=== PATIENT | male | born 1985 | race Caucasian/White ===

== ENCOUNTER 2018-10-13 07:54 | Emergency (ER) | payer OTHER ==
[2018-10-13 08:05] VITALS: BP 118/68; PULSE 69; TEMP 98.6; BMI 30.7
--- NOTE | 2018-10-13 08:29 | PDOC ---
History of Present Illness - General Chief Complaint: Abscess Boil Stated Complaint: LUMP ON WRIST Time Seen by Provider: 10/13/18 08:09 History Source: Patient Exam Limitations: No Limitations Past History - Travel Traveled outside of the country in the last 30 days: No Close contact w/someone who was outside of country & ill: No - Past Medical History Allergies/Adverse Reactions: Allergies Allergy/AdvReac Type Severity Reaction Status Date / Time No Known Allergies Allergy Verified 10/13/18 08:03 Home Medications: Ambulatory Orders Ibuprofen 600 mg PO Q6H #30 tablet 10/13/18 COPD: No - Immunization History Immunization Up to Date: No - Suicide/Smoking/Psychosocial Hx Smoking History: Never smoked Have you smoked in the past 12 months: No Information on smoking cessation initiated: No Hx Alcohol Use: No Drug/Substance Use Hx: No Review of Systems - Review of Systems Able to Perform ROS?: Yes Comments:: 10/13/18 08:24 CONSTITUTIONAL: Absent: fever, chills, diaphoresis, generalized weakness, malaise, loss of appetite MUSCULOSKELETAL: Absent: myalgia, arthralgia, joint swelling SKIN: Present: lump on L wrist Absent: rash, itching, pallor NEUROLOGIC: Absent: headache, focal weakness or paresthesias, dizziness, unsteady gait, seizure, mental status changes, bladder or bowel incontinence PSYCHIATRIC: Absent: anxiety, depression, suicidal or homicidal ideation, hallucinations. Is the patient limited Norwegian proficient: No *Physical Exam - Vital Signs Last Vital Signs Temp Pulse Resp BP Pulse Ox 98.6 F 69 18 118/68 96 10/13/18 08:01 10/13/18 08:01 10/13/18 08:01 10/13/18 08:01 10/13/18 08:01 - Physical Exam Comments: 10/13/18 08:25 GENERAL: The patient is awake, alert, and fully oriented, in no acute distress. HEAD: Normal with no signs of trauma. EYES: Pupils equal, round and reactive to light, extraocular movements intact, sclera anicteric, conjunctiva clear. EXTREMITIES: Normal range of motion, no edema. NEUROLOGICAL: Normal speech, normal gait. PSYCH: Normal mood, normal affect. SKIN: 1cm round x 1cm high mobile cyst like structure to the L lateral ventral wrist. No erythema or pus noted to the area. Warm, Dry, normal turgor, no rashes noted. Medical Decision Making - Medical Decision Making 10/13/18 08:26 The patient is a 32-year-old male with no past medical history who presents to the ER with a bump on his left wrist. The patient is right-hand dominant. The patient states that the bump has been there for approximately 5 months. He states that it fluctuates in size. However the last 3 days. He states his gotten larger and size. He states that it is painful. Denies fevers, chills, redness to the site, drainage from the site, weakness/numbness and tingling to the affected extremity. A/P: Ganglion cyst On exam there is a 1 cm round by 1 cm high ganglion cyst to the left ventral lateral wrist. It is mobile, nonerythematous without signs of secondary infection. PMS of the L hand intact Will give NSAIDs for pain. We will refer patient to orthopedics for further management as there is nothing to do at this time. Discharge home I discussed the physical exam findings, ancillary test results and final diagnoses with the patient. I answered all of the patient's questions. The patient was satisfied with the care received and felt comfortable with the discharge plan and treatment plan. The Patient agrees to follow up with the primary care physician/specialist within 24-72 hours. Return precautions were given. *DC/Admit/Observation/Transfer Diagnosis at time of Disposition: Ganglion cyst - Discharge Dispostion Disposition: HOME Condition at time of disposition: Stable Decision to Admit order: No - Referrals Referrals: Avery Leong MD [Staff Physician] - - Patient Instructions Additional Instructions: you are evaluated for the bump on your wrist today. It is a cyst Please follow-up with orthopedics as given below to have the cyst looked at and possibly removed. He may apply warm compresses to the area. He may take Motrin 600 mg every 6 hours as needed for pain. Follow dosing instruction on the bottle. Return to the ER for any new or worsening symptoms. Wednesday through Wednesday from 8 AM to 5 PM [facility] [address] [place], [place] [id number] (Directions) Usted fue evaluado para el golpe en elder mueca hoy. Es un quiste Por favor, kushal un seguimiento con la ortopedia andrés se muestra a continuacin para que el quiste se jose alejandro y posiblemente se elimine. Puede aplicar compresas calientes en la elizabeth. Puede gabrielle Motrin 600 mg cada 6 horas segn sea necesario para el dolor. Siga las instrucciones de dosificacin en la botella. Regrese a urgencias para cualquier sntoma nuevo o empeoramiento. De lunes a viernes de 8 AM a 5 PM [facility] [place] (nivel inferior) [address] [place] [address] (direcciones) Print Language: SPA - Post Discharge Activity Forms/Work/School Notes: Back to Work
== END 2018-10-13 08:37 | disposition home or self-care (01) ==
LOC: JERFT 07:54
DX: M67.432 Ganglion, left wrist (principal)
CPT/HCPCS: 99281-25